=== PATIENT | female | born 1945 | race Caucasian/White ===

== ENCOUNTER 2022-11-29 13:14 | Inpatient (IN) | payer OTHER, MEDICARE ==
[2022-11-29 14:09] LABS: Absolute Lymphocytes (CBC) 2.4 K/uL (0.7-4.9); Hematocrit 42.1 % (36.0-45.0); Lymphocytes % 26.6 % (15.3-44.8); MCV 86.3 fL (80-100); MPV 8.6 fL (7.6-11.3); Platelets 179 thou/uL (152-406); RBC Red Blood Cell Count 4.88 M/uL (3.86-4.86)
[2022-11-29 14:37] LABS: Albumin 3.1 g/dL (3.4-5.0); Bilirubin Direct 0.2 mg/dL (0-0.2); Bilirubin Indirect, Calculated 0.4 mg/dL (0.2-0.8); Bilirubin Total 0.6 mg/dL (0.2-1.0); Potassium 4.3 mEq/L (3.5-5.1); Protein, Total 7.3 g/dL (6.4-8.2); Thyroid Stimulating Hormone 3.54 uIU/mL (0.358-3.740)
[2022-11-29 14:41] LABS: Troponin High Sensitivity 349.3 pg/mL (<58.9)
[2022-11-29] MEDS ORDERED: NA CHLORIDE 0.9% 1,000 ML ONE (15:14)
--- NOTE | 2022-11-29 16:19 | RAD REPORT ---
EXAM DESCRIPTION: CT - Chest For Pe Angio - 11/29/2022 3:54 pm CLINICAL HISTORY: sob COMPARISON: None. TECHNIQUE: Dynamically enhanced axial 3 mm thick images of the chest were obtained during administra tion of 100 mL Isovue 370 IV contrast. Coronal and oblique reconstruction images were generated and r eviewed. Exam utilizes a protocol for optimal evaluation of pulmonary arterial tree. Maximum intensity projections 3D imaging was utilized All CT scans are performed using dose optimization technique as appropriate and may include automated exposure control or mA/KV adjustment according to patient size. FINDINGS: Thrombus is present within distal aspect of left main pulmonary artery. Large amount of th rombus is present within left and right lower lobe pulmonary arteries. Thrombus is also present withi n proximal right and left upper lobe pulmonary arteries. Probable right heart strain No thrombus within the main pulmonary artery. A thoracic aortic aneurysm is not noted. A pleural effusion is not seen. A pericardial effusion is not seen. A lung consolidation is not present. IMPRESSION: Bilateral pulmonary emboli
--- NOTE | 2022-11-29 16:19 | RAD REPORT ---
EXAM DESCRIPTION: [place] Single View11/29/2022 2:05 pm CLINICAL HISTORY: sob COMPARISON: none FINDINGS: The lungs appear clear of acute infiltrate. The heart is mildly enlarged IMPRESSION: No acute abnormalities displayed
--- NOTE | 2022-11-29 16:34 | EDPHYS ---
Physician Documentation [facility] Name: Ceci Woodruff Age: 77 yrs Sex: Female : 1945 Arrival Date: 11/29/2022 Time: 13:14 Bed 19 Private MD: ED Physician Dominic Keith HPI: 11/29 16:39 This 77 yrs old Unknown Female presents to ER via Ambulatory with complaints of rt Shortness Of Breath - when walking. 16:39 Patient presents to the ED with shortness of breath, reported fast heart rate starting rt today but 11. Occurred acutely. Patient denies chest pain. Patient denies other acute complaints at this time. Symptoms are moderate severity, no other aggravating alleviating factors.. Historical: - Allergies: 13:30 PENICILLINS; mb9 - Home Meds: 13:30 atorvastatin 20 mg oral tablet once [Active]; losartan 100 mg oral tablet once mb9 [Active]; metoprolol tartrate 25 mg Oral tablet once [Active]; - PMHx: 13:30 Diabetes mellitus; Hypertensive disorder; Stage 4 kidney failure; mb9 - PSHx: 13:30 Total abdominal hysterectomy; Tonsillectomy; mb9 - Immunization history:: Adult Immunizations up to date. - Social history:: Smoking status: Patient denies any tobacco usage or history of. ROS: 16:39 Constitutional: Negative for fever, chills, and weight loss, Eyes: Negative for injury, rt pain, redness, and discharge, Abdomen/GI: Negative for abdominal pain, nausea, vomiting, diarrhea, and constipation, MS/Extremity: Negative for injury and deformity, Skin: Negative for injury, rash, and discoloration, Neuro: Negative for headache, weakness, numbness, tingling, and seizure, Psych: Negative for depression, anxiety, suicide ideation, homicidal ideation, and hallucinations. 16:39 Cardiovascular: Positive for palpitations, Negative for chest pain. 16:39 Respiratory: Positive for cough, shortness of breath. Exam: 16:39 Constitutional: This is a well developed, well nourished patient who is awake, alert, rt and in no acute distress. Head/Face: Normocephalic, atraumatic. Chest/axilla: Normal chest wall appearance and motion. Nontender with no deformity. No lesions are appreciated. Cardiovascular: Regular rate and rhythm with a normal S1 and S2. No gallops, murmurs, or rubs. Normal PMI, no JVD. No pulse deficits. Respiratory: Lungs have equal breath sounds bilaterally, clear to auscultation and percussion. No rales, rhonchi or wheezes noted. No increased work of breathing, no retractions or nasal flaring. Abdomen/GI: Soft, non-tender, with normal bowel sounds. No distension or tympany. No guarding or rebound. No evidence of tenderness throughout. Skin: Warm, dry with normal turgor. Normal color with no rashes, no lesions, and no evidence of cellulitis. MS/ Extremity: Pulses equal, no cyanosis. Neurovascular intact. Full, normal range of motion. Neuro: Awake and alert, GCS 15, oriented to person, place, time, and situation. Cranial nerves II-XII grossly intact. Motor strength 5/5 in all extremities. Sensory grossly intact. Cerebellar exam normal. Normal gait. Psych: Awake, alert, with orientation to person, place and time. Behavior, mood, and affect are within normal limits. 16:39 ECG was reviewed by the Attending Physician. Vital Signs: 13:28 BP 164 / 84; Pulse 133; Resp 22; Temp 97.4; Pulse Ox 93% on R/A; Weight 108.86 kg; eh3 Height 5 ft. 3 in. ; Pain 0/10; 14:00 BP 164 / 95; Pulse 124; Resp 18; Pulse Ox 95% on R/A; eh3 14:30 BP 166 / 89; Pulse 119; Resp 18; Pulse Ox 95% on R/A; eh3 15:00 BP 196 / 87; Pulse 119; Resp 20; Pulse Ox 98% on R/A; eh3 16:00 BP 140 / 86; Pulse 100; Resp 20; Pulse Ox 97% on R/A; eh3 16:30 BP 140 / 67; Pulse 100; Resp 20; Pulse Ox 98% on R/A; eh3 17:00 BP 131 / 76; Pulse 97; Resp 19; Pulse Ox 96% on R/A; eh3 18:00 BP 150 / 93; Pulse 97; Resp 20; Pulse Ox 97% on R/A; eh3 20:17 BP 159 / 71; Pulse 103; Resp 24; Temp 98.4; Pulse Ox 93% on R/A; eh3 13:28 Body Mass Index 42.51 (108.86 kg, 160.02 cm) eh3 13:28 Pain Scale: Adult eh3 MDM: 13:38 Patient medically screened. rt 16:39 Differential diagnosis: pneumonia, Pneumothorax pulmonary edema, Pulmonary Embolism rt reactive airway disease, Sepsis Unstable Angina. Data reviewed: vital signs, nurses notes, lab test result(s), EKG, radiologic studies. Consideration of Admission/Observation Patient was admitted/placed on observation. Management of patient was discussed with the following: Hospitalist: Agrees to admit. I considered the following discharge prescriptions or medication management in the emergency department Medications were administered in the Emergency Department. See MAR. Independent interpretation of the following test(s) in the Emergency Department CT Scan: My interpretation is Bilateral PEs seen on interpretation of the CT scan image. Care significantly affected by the following chronic conditions: Diabetes, Hypertension. Counseling: I had a detailed discussion with the patient and/or guardian regarding: the historical points, exam findings, and any diagnostic results supporting the discharge/admit diagnosis, the presence of at least one elevated blood pressure reading (>120/80) during this emergency department visit, lab results, radiology results, the need for further work-up and treatment in the hospital. 11/29 13:46 Order name: Basic Metabolic Panel; Complete Time: 14:44 rt 11/29 13:46 Order name: CBC with Diff; Complete Time: 14:32 rt 11/29 13:46 Order name: D-Dimer; Complete Time: 14:32 rt 11/29 13:46 Order name: LFT's; Complete Time: 14:44 rt 11/29 13:46 Order name: Magnesium; Complete Time: 14:44 rt 11/29 13:46 Order name: NT PRO-BNP; Complete Time: 14:44 rt 11/29 13:46 Order name: Troponin HS; Complete Time: 14:44 rt 11/29 13:46 Order name: TSH; Complete Time: 14:44 rt 11/29 17:21 Order name: CBC with Automated Diff EDMS 11/29 17:21 Order name: CBC with Automated Diff EDMS 11/29 17:21 Order name: Comprehensive Metabolic Panel EDMS 11/29 17:21 Order name: Comprehensive Metabolic Panel EDMS 11/29 13:46 Order name: XRAY Chest (1 view); Complete Time: 16:20 rt 11/29 14:36 Order name: CT Chest For PE Angio; Complete Time: 16:20 rt 11/29 17:25 Order name: Echo with Doppler EDMS 11/29 17:26 Order name: Extrem Venous W Compress La[place]; Complete Time: 20:15 EDMS 11/29 13:46 Order name: EKG; Complete Time: 13:46 rt 11/29 17:21 Order name: Regular EDMS 11/29 13:46 Order name: Cardiac monitoring; Complete Time: 14:01 rt 11/29 13:46 Order name: EKG - Nurse/Tech; Complete Time: 14:19 rt 11/29 13:46 Order name: IV Saline Lock; Complete Time: 14:01 rt 11/29 13:46 Order name: Labs collected and sent; Complete Time: 14:01 rt 11/29 13:46 Order name: O2 Per Protocol; Complete Time: 14:01 rt 11/29 13:46 Order name: O2 Sat Monitoring; Complete Time: 14:01 rt EC:39 Rate is 123 beats/min. Rhythm is regular, Sinus tachycardia with No ectopy. QRS [place] is rt Normal. [place] interval is normal. QRS interval is normal. QT interval is normal. No Q waves. T waves are Normal. No ST changes noted. Interpreted by me. Administered Medications: 15:00 Drug: NS 0.9% IV 1000 ml Route: IV; Rate: 1 bolus; Site: left antecubital; 3 18:00 Follow up: IV Status: Completed infusion; IV Intake: 1000ml 3 16:50 Drug: Enoxaparin Sub-Q 1 mg/kg Route: Sub-Q; Site: abdomen; eh3 17:55 Follow up: Response: No adverse reaction eh3 Disposition: 16:39 Critical Care:. rt Disposition Summary: 11/29/22 16:34 Hospitalization Ordered Hospitalization Status: Inpatient Admission rt Provider: Braxton Ramirez rt Condition: Fair rt Problem: new rt Symptoms: have improved rt Bed/Room Type: Standard rt Location: Intensive Care Unit(11/29/22 18:24) la1 Room Assignment: 3-(11/29/22 19:24) cg Diagnosis - Bilateral pulmonary embolism rt Forms: - Medication Reconciliation Form rt - SBAR form rt Critical care time excluding procedures: 16:39 Critical care time: Bedside Care: 30 minutes, Consultation: 10 minutes. Total time: 40 rt minutes Signatures: Dispatcher [employer] EDCash Greco, WRINGER MACHINE OPERATOR-C WRINGER MACHINE OPERATOR-Cla1 Marbella Aparicio, RN RN cg Hillary Strange RN RN 3 Tameka Null RN RN mb9 Dominci Keith MD MD rt Corrections: (The following items were deleted from the chart) 18:24 16:34 Telemetry/MedSurg (Inpatient) rt la1 18:24 16:34 rt la1 19:24 18:24 la1 cg
--- NOTE | 2022-11-29 16:34 | ER ---
Nurse's Notes [facility] Name: Ceci Woodruff Age: 77 yrs Sex: Female : 1945 Arrival Date: 11/29/2022 Time: 13:14 Bed 19 Private MD: Diagnosis: Bilateral pulmonary embolism Presentation: 11/29 13:28 Chief complaint: Patient states: "I'm getting SOB and can't catch my breath when I walk mb9 short distances. My pulse is really high as well and my SOB get worse when I move around at all". Coronavirus screen: Vaccine status: Patient reports receiving the 2nd dose of the covid vaccine. Ebola Screen: No symptoms or risks identified at this time. Initial Sepsis Screen: Does the patient meet any 2 criteria? No. Patient's initial sepsis screen is negative. Does the patient have a suspected source of infection? No. Patient's initial sepsis screen is negative. Risk Assessment: Do you want to hurt yourself or someone else? Patient reports no desire to harm self or others. Onset of symptoms was November 29, 2022. 13:28 Method Of Arrival: Ambulatory 9 13:28 Acuity: HEATHER 2 mb9 Triage Assessment: 13:32 General: Appears uncomfortable, Behavior is cooperative. Pain: Denies pain. mb9 Respiratory: Reports shortness of breath on exertion Airway is patent Respiratory effort is even, labored, Respiratory pattern is tachypnea Onset: The symptoms/episode began/occurred gradually, the patient has moderate shortness of breath. GI: Patient currently denies diarrhea, nausea. Derm: Skin is pink, warm \\T\\ dry. Musculoskeletal: Range of motion: intact in all extremities. Historical: - Allergies: 13:30 PENICILLINS; mb9 - Home Meds: 13:30 atorvastatin 20 mg oral tablet once [Active]; losartan 100 mg oral tablet once mb9 [Active]; metoprolol tartrate 25 mg Oral tablet once [Active]; - PMHx: 13:30 Diabetes mellitus; Hypertensive disorder; Stage 4 kidney failure; mb9 - PSHx: 13:30 Total abdominal hysterectomy; Tonsillectomy; mb9 - Immunization history:: Adult Immunizations up to date. - Social history:: Smoking status: Patient denies any tobacco usage or history of. Screenin:35 [facility] ED Fall Risk Assessment (Adult) Score/Fall Risk Level 0 - 2 = Low Risk. Abuse eh3 screen: Denies threats or abuse. Denies injuries from another. Nutritional screening: No deficits noted. Tuberculosis screening: No symptoms or risk factors identified. Assessment: 13:35 General: Appears in no apparent distress. uncomfortable, Behavior is cooperative, eh3 appropriate for age, anxious. Pain: Denies pain. Neuro: Level of Consciousness is awake, alert, obeys commands, Oriented to person, place, time, situation. Cardiovascular: Capillary refill < 3 seconds Patient's skin is warm and dry. Rhythm is sinus tachycardia. Respiratory: Airway is patent Respiratory effort is even, unlabored, Respiratory pattern is regular, symmetrical, Breath sounds are coarse bilaterally. GI: Abdomen is round non-distended. Derm: Skin is pink, warm \\T\\ dry. Musculoskeletal: Circulation, motion, and sensation intact. 14:00 Reassessment: Patient appears in no apparent distress at this time. Patient and/or eh3 family updated on plan of care and expected duration. Pain level reassessed. Patient is alert, oriented x 3, equal unlabored respirations, skin warm/dry/pink. 15:00 Reassessment: Patient appears in no apparent distress at this time. Patient and/or eh3 family updated on plan of care and expected duration. Pain level reassessed. Patient is alert, oriented x 3, equal unlabored respirations, skin warm/dry/pink. 16:00 Reassessment: Patient appears in no apparent distress at this time. Patient and/or eh3 family updated on plan of care and expected duration. Pain level reassessed. Patient is alert, oriented x 3, equal unlabored respirations, skin warm/dry/pink. 17:00 Reassessment: Patient appears in no apparent distress at this time. Patient and/or eh3 family updated on plan of care and expected duration. Pain level reassessed. Patient is alert, oriented x 3, equal unlabored respirations, skin warm/dry/pink. 18:00 Reassessment: Patient appears in no apparent distress at this time. Patient and/or eh3 family updated on plan of care and expected duration. Pain level reassessed. Patient is alert, oriented x 3, equal unlabored respirations, skin warm/dry/pink. 18:59 Reassessment: IV infiltrated. Discontinued IV, catheter intact, no redness swelling or eh3 drainage noted at site. Pressure dressing applied. 19:33 Reassessment: Nurse to nurse report received by Loraine in ICU. eh3 Vital Signs: 13:28 BP 164 / 84; Pulse 133; Resp 22; Temp 97.4; Pulse Ox 93% on R/A; Weight 108.86 kg; eh3 Height 5 ft. 3 in. ; Pain 0/10; 14:00 BP 164 / 95; Pulse 124; Resp 18; Pulse Ox 95% on R/A; eh3 14:30 BP 166 / 89; Pulse 119; Resp 18; Pulse Ox 95% on R/A; eh3 15:00 BP 196 / 87; Pulse 119; Resp 20; Pulse Ox 98% on R/A; eh3 16:00 BP 140 / 86; Pulse 100; Resp 20; Pulse Ox 97% on R/A; eh3 16:30 BP 140 / 67; Pulse 100; Resp 20; Pulse Ox 98% on R/A; eh3 17:00 BP 131 / 76; Pulse 97; Resp 19; Pulse Ox 96% on R/A; eh3 18:00 BP 150 / 93; Pulse 97; Resp 20; Pulse Ox 97% on R/A; eh3 20:17 BP 159 / 71; Pulse 103; Resp 24; Temp 98.4; Pulse Ox 93% on R/A; eh3 13:28 Body Mass Index 42.51 (108.86 kg, 160.02 cm) eh3 13:28 Pain Scale: Adult 3 ED Course: 13:19 Patient arrived in ED. im 13:21 Arm band placed on. mb9 13:30 Triage completed. mb9 13:35 Dominic Keith MD is Attending Physician. rt 13:35 Patient has correct armband on for positive identification. Placed in gown. Bed in low eh3 position. Call light in reach. Side rails up X2. Provided Education on: Use of call gillespie. Client placed on continuous cardiac and pulse oximetry monitoring. NIBP monitoring applied. Warm blanket given. 13:51 Hillary Strange, STAR is Primary Nurse. eh3 14:07 XRAY Chest (1 view) In Process Unspecified. EDMS 15:55 CT Chest For PE Angio In Process Unspecified. EDMS 16:34 Braxton Ramirez MD is Hospitalizing Provider. rt 19:39 No provider procedures requiring assistance completed. eh3 20:15 Inserted saline lock: 22 gauge in right antecubital area, using aseptic technique. eh3 20:25 Patient admitted, IV remains in place. 3 Administered Medications: 15:00 Drug: NS 0.9% IV 1000 ml Route: IV; Rate: 1 bolus; Site: left antecubital; eh3 18:00 Follow up: IV Status: Completed infusion; IV Intake: 1000ml 3 16:50 Drug: Enoxaparin Sub-Q 1 mg/kg Route: Sub-Q; Site: abdomen; 3 17:55 Follow up: Response: No adverse reaction eh3 Medication: 19:39 VIS not applicable for this client. 3 Intake: 18:00 IV: 1000ml; Total: 1000ml. 3 Outcome: 16:34 Decision to Hospitalize by Provider. rt 20:25 Admitted to ICU accompanied by nurse, family with patient, via stretcher, room 3, 3 Report called to [facility] 20:25 Condition: stable 20:25 Instructed on the need for admit. 20:26 Patient left the ED. 3 Signatures: Dispatcher [employer] EDHillary Abbott RN RN eh3 Tameka Null RN RN mb9 Dominic Keith MD MD rt Angelia Venegas Corrections: (The following items were deleted from the chart) 13:35 13:28 BP 164 / 84; Pulse 133bpm; Resp 22bpm; Pulse Ox 93% RA; 108.86 kg; Height 5 ft. 3 3 in.; BMI: 42.5; Pain 0/10, Adult; mb9
[2022-11-29] MEDS ORDERED: ENOXAPARIN 100 MG/ML SYR SQ ONE (16:55)
--- NOTE | 2022-11-29 17:23 | P.HP ---
Certification for Inpatient With expected LOS: >2 Midnights Practitioner: I am a practitioner with admitting privileges, knowledge of patient current condition, hospital course, and medical plan of care. Services: Services provided to patient in accordance with Admission requirements found in Title 42 Section 412.3 of the Code of Federal Regulations Patient History Date of Service: 12/01/22 Reason for admission: Pulmonary embolism History of Present Illness: Patient is 77 years of age admitted with acute worsening of her shortness of breath or shortness of breath started this Wednesday was diagnosed with pulmonary embolism patient has shortness of breath on mild exertion no prior history of thromboembolism no risk factors no recent surgeries Allergies Penicillins Allergy (Verified 11/29/22 17:43) Itching/Hives/Rash Home Medications: Atorvastatin Calcium [Lipitor] 20 mg PO BEDTIME 11/29/22 Dulaglutide [Trulicity] 1.5 mg SQ SEECOM 11/29/22 Insulin Degludec [Tresiba Flextouch U-100] 60 units SQ BEDTIME 11/29/22 Insulin Lispro [Humalog Kwikpen U-100] 13 units SQ ACHS 11/29/22 Losartan Potassium [Cozaar] 100 mg PO DAILY 11/29/22 Metoprolol Tartrate [Lopressor] 25 mg PO BID 11/29/22 - Past Medical/Surgical History -: Diabetes -: Hypertension Review of Systems 10-point ROS is otherwise unremarkable Respiratory: Shortness of Breath Physical Examination - Vital Signs Temperature: 97.4 F Blood Pressure: 163/84 Pulse: 133 Respirations: 22 Pulse Ox (%): 94 - Physical Exam General: Alert, In no apparent distress HEENT: Atraumatic Neck: Supple Respiratory: Clear to auscultation bilaterally, Diminished Cardiovascular: Normal S1 S2, Edema (Left leg is edematous that is chronic) Gastrointestinal: Normal bowel sounds, Soft and benign Musculoskeletal: No clubbing, No swelling - Studies Laboratory Data (last 24 hrs) 11/29/22 11/29/22 14:00 14:00 WBC 9.10 Hgb 13.6 Hct 42.1 Plt Count 179 Sodium 139 Potassium 4.3 BUN 16 Creatinine 1.38 H Glucose 153 H Magnesium 2.0 Total Bilirubin 0.6 AST 15 ALT 20 Alkaline Phosphatase 85 Assessment and Plan - Problems (Diagnosis) (1) Pulmonary embolism Status: Acute Plan: Patient is 77 years of age admitted with acute pulmonary embolism she is hemodynamically stable oxygenation vital signs are all stable right now we will plan to anticoagulate her with the Lovenox for now she is stable switch her over to Eliquis 10 mg twice a day for a week and then 5 mg twice a day she will need indefinite anticoagulation 2D echocardiogram ordered only has right ventricular strain elevated troponin patient has chronic renal insufficiency elevated troponins are from right heart strain/ May need thrombolytic [place] Qualifiers: Acute cor pulmonale presence: unspecified - Advance Directives Does patient have a Living Will: No Does patient have a Durable POA for Healthcare: No
--- NOTE | 2022-11-29 18:37 | RAD REPORT ---
EXAM DESCRIPTION: USExtrem Venous W Compress Bil11/29/2022 6:21 pm CLINICAL HISTORY: Leg pain COMPARISON: none FINDINGS: The common femoral, superficial femoral, greater saphenous, popliteal and posterior tibial veins bilaterally are compressible and demonstrate augmentation. Doppler demonstrates good flow. Grayscale, color and spectral analysis performed on all vessels IMPRESSION: No evidence of deep venous thrombosis involving either lower extremity.
[2022-11-29] MEDS ORDERED: MORPHINE 2 MG/ML SYR IV PRN (18:42)
[2022-11-29] MEDS ORDERED: D50W 25 GM/50 ML SYRINGE IV PRN (18:42)
[2022-11-29] MEDS ORDERED: GLUCAGON 1 MG/VIAL IM PRN (18:42)
[2022-11-29] MEDS ORDERED: D10W 125 ML IV PRN (19:10)
[2022-11-29] MEDS ORDERED: INSULIN -REGULAR HUMAN 50 UNIT/0.5 ML ML SQ SCH (21:00)
[2022-11-29] MEDS ORDERED: ATORVASTATIN 20 MG TAB PO SCH (21:00)
[2022-11-29] MEDS ORDERED: ATORVASTATIN 40 MG TAB PO SCH (21:00)
[2022-11-29 21:02] VITALS: O2SAT 93
--- NOTE | 2022-11-29 21:07 | P.DS ---
Admission Date: 11/29/22 Discharge Date: 11/29/22 Disposition: TRANSFER TO [facility] Reason for Admission: Pulmonary embolism Procedures: CT PE protocol 11/29/2022 FINDINGS: Thrombus is present within distal aspect of left main pulmonary artery. Large amount of thrombus is present within left and right lower lobe pulmonary arteries. Thrombus is also present within proximal right and left upper lobe pulmonary arteries. Probable right heart strain No thrombus within the main pulmonary artery. A thoracic aortic aneurysm is not noted. A pleural effusion is not seen. A pericardial effusion is not seen. A lung consolidation is not present. IMPRESSION: Bilateral pulmonary emboli Chest x-ray 11/29/2022 FINDINGS: The lungs appear clear of acute infiltrate. The heart is mildly enlarged IMPRESSION: No acute abnormalities displayed Bilateral lower extremity venous Dopplers 11/29/2022 FINDINGS: The common femoral, superficial femoral, greater saphenous, popliteal and posterior tibial veins bilaterally are compressible and demonstrate augmentation. Doppler demonstrates good flow. Grayscale, color and spectral analysis performed on all vessels IMPRESSION: No evidence of deep venous thrombosis involving either lower extremity Brief History of Present Illness: Patient was admitted for pulmonary embolism, given Lovenox, NS in ED. Hospital Course: Patient was admitted with diagnosis of bilateral pulmonary embolism, she was noted to have elevated troponin, right heart strain on CT along with large clot burden. Case was discussed with cardiology and hospitalist attending and recommendation was made for consultation with tertiary center for possible catheter directed therapy/EKOS/higher level of care. I discussed the case with cardiology Dr. Roach and MICU bus system operator Dr. Armstrong who graciously excepted the patient to their MICU for further evaluation/management. Vital Signs/Physical Exam: Temp Pulse Resp BP Pulse Ox 98.6 F 106 H 23 H 151/70 H 98 11/29/22 20:34 11/29/22 20:34 11/29/22 20:34 11/29/22 20:34 11/29/22 20:34 General: Alert, In no apparent distress, Oriented x3, Obese HEENT: Atraumatic, PERRLA, EOMI Neck: Supple, JVD not distended Respiratory: Clear to auscultation bilaterally, Normal air movement Cardiovascular: Regular rate/rhythm, Normal S1 S2 Capillary refill: <2 Seconds Gastrointestinal: Normal bowel sounds, No tenderness Musculoskeletal: No tenderness Integumentary: No rashes Neurological: Normal speech, Normal tone, Normal affect Laboratory Data at Discharge: WBC 9.10 thou/uL (4.3-10.9) 11/29/22 14:00 Hgb 13.6 g/dL (12.0-15.0) 11/29/22 14:00 Hct 42.1 % (36.0-45.0) 11/29/22 14:00 Plt Count 179 thou/uL (152-406) 11/29/22 14:00 Sodium 139 mEq/L (136-145) 11/29/22 14:00 Potassium 4.3 mEq/L (3.5-5.1) 11/29/22 14:00 BUN 16 mg/dL (7-18) 11/29/22 14:00 Creatinine 1.38 mg/dL (0.55-1.02) H 11/29/22 14:00 Glucose 153 mg/dL (74-106) H 11/29/22 14:00 Magnesium 2.0 mg/dL (1.6-2.4) 11/29/22 14:00 Total Bilirubin 0.6 mg/dL (0.2-1.0) 11/29/22 14:00 AST 15 U/L (15-37) 11/29/22 14:00 ALT 20 U/L (13-56) 11/29/22 14:00 Alkaline Phosphatase 85 U/L (45-117) 11/29/22 14:00 Physician Discharge Instructions: Continue with plan of care at [facility] Followup: NONE,NONE [Primary Care Provider] - Time spent managing pt's care (in minutes): 55
[2022-11-29 21:29] VITALS: BMI 40.6
[2022-11-30] MEDS ORDERED: ASPIRIN EC 81 MG TAB PO SCH ×2 (09:00)
[2022-11-30] MEDS ORDERED: ENOXAPARIN 100 MG/ML SYR SQ SCH (09:00)
[2022-11-30] MEDS ORDERED: LOSARTAN POTASSIUM 50 MG TABLET PO SCH ×2 (09:00)
--- NOTE | 2022-11-30 13:03 | EKG ---
Test Date: 2022-11-29 Test Time: 14:13:18 Director Corporate Sales: FRANK MEASUREMENT RESULTS: Intervals: Rate: 123 UT: 198 QRSD: 76 QT: 284 QTc: 406 [place]: P: 52 UT: 198 QRS: 66 T: 47 INTERPRETIVE STATEMENTS: Sinus tachycardia Low voltage QRS Borderline ECG No previous ECG available for comparison Electronically Signed On 11-30-22 13:00:28 CDT by Juan Luis Gaitan
[2022-12-01 15:59] VITALS: BP 163/84; TEMP 97.4
== END 2022-11-29 23:15 | disposition short-term general hospital (02) | DRG 176 ==
LOC: ER 13:14 → ERHOLD 17:18 → 3RD-ICU 19:36
PROVIDERS: ADMIT Internal Medicine Sleep Medicine; ATTEND Internal Medicine
DX: I26.99 Other pulmonary embolism without acute cor pulmonale (principal); N18.4 Chronic kidney disease, stage 4 (severe); Z68.41 Body mass index [BMI] 40.0-44.9, adult; E66.9 Obesity, unspecified; I12.9 Hypertensive chronic kidney disease with stage 1 through stage 4 chronic kidney disease, or unspecified chronic kidney disease; E11.22 Type 2 diabetes mellitus with diabetic chronic kidney disease; Z88.0 Allergy status to penicillin; Z79.4 Long term (current) use of insulin; Z90.710 Acquired absence of both cervix and uterus; Z79.899 Other long term (current) drug therapy
CPT/HCPCS: 36415; 71045; 71275; 80048; 80076; 82947; 83735; 83880; 84443; 84484; 85025; 85379; 93005; 93970; 96360; 96361; 96372; 99285; J1650; J7030; Q9967

== ENCOUNTER 2023-10-07 14:00 | Emergency (ER) | payer OTHER, MEDICARE ==
[2023-10-07] MEDS ORDERED: HYDROCODONE/APAP 5/325 MG TAB ONE (14:20)
--- NOTE | 2023-10-07 16:01 | ER ---
Nurse's Notes [facility] Name: Ceci Woodruff Age: 78 yrs Sex: Female : 1945 Arrival Date: 10/07/2023 Time: 14:00 Bed 5 Private MD: Diagnosis: Other sprain of right shoulder joint;Nondisplaced fracture of lateral malleolus of right fibula Presentation: 10/06 14:16 Chief complaint: Patient states: pt fell a week ago and is c/o right ankle pain. as6 Coronavirus screen: At this time, the client does not indicate any symptoms associated with coronavirus-19. Ebola Screen: No symptoms or risks identified at this time. Initial Sepsis Screen: Does the patient meet any 2 criteria? No. Patient's initial sepsis screen is negative. Does the patient have a suspected source of infection? No. Patient's initial sepsis screen is negative. Risk Assessment: Do you want to hurt yourself or someone else? Patient reports no desire to harm self or others. Onset of symptoms was September 30, 2023. 14:16 Method Of Arrival: Wheelchair as6 14:16 Acuity: HEATHER 4 as6 Historical: - Allergies: 14:19 PENICILLINS; as6 - PMHx: 14:19 diabetes mellitus; Hypertensive disorder; stage 4 kidney failure; as6 - PSHx: 14:19 Tonsillectomy; Total abdominal hysterectomy; as6 - Immunization history:: Adult Immunizations up to date. - Infectious Disease History:: Denies. - Social history:: Smoking status: Patient denies any tobacco usage or history of. Screenin:23 [facility] ED Fall Risk Assessment (Adult) History of falling in the last 3 months, mb9 including since admission Yes- single mechanical fall (1 pt) Confusion or Disorientation No (0 pts) Intoxicated or Sedated No (0 pts) Impaired Gait Yes (1 pt) Mobility Assist Device Used Yes (1 pt) Altered Elimination No (0 pt) Score/Fall Risk Level 3 or more points = High Risk Oriented to surroundings, Maintained a safe environment, Educated pt \T\ family on fall prevention, incl call for assistance when getting out of bed. Abuse screen: Denies threats or abuse. Nutritional screening: No deficits noted. Tuberculosis screening: No symptoms or risk factors identified. Assessment: 14:22 General: Appears in no apparent distress. Behavior is calm, cooperative. Pain: mb9 Complains of pain in right foot Pain does not radiate. Quality of pain is described as throbbing. Neuro: Truong Agitation-Sedation Scale (RASS): 0 - Alert and Calm Level of Consciousness is awake, alert, obeys commands, Oriented to person, place, time, situation, Appropriate for age. Cardiovascular: Patient's skin is warm and dry. Respiratory: Airway is patent Respiratory effort is even, unlabored, Respiratory pattern is regular, symmetrical. GI: No signs and/or symptoms were reported involving the gastrointestinal system. : No signs and/or symptoms were reported regarding the genitourinary system. EENT: No signs and/or symptoms were reported regarding the EENT system. Derm: Skin is pink, warm \T\ dry. Musculoskeletal: Capillary refill is brisk, in bilateral Range of motion: limited in right ankle. Vital Signs: 14:16 Pulse 89; Resp 16; Temp 98; Pulse Ox 98% ; Weight 108.86 kg; Height 5 ft. 2 in. ; Pain as6 9/10; 14:19 BP 157 / 79; as6 14:16 Body Mass Index 43.90 (108.86 kg, 157.48 cm) as6 14:16 Pain Scale: Adult as6 ED Course: 14:03 Patient arrived in ED. im 14:05 Ena Dennis FNP-C is PHCP. kb 14:05 Jorge Brower MD is Attending Physician. kb 14:18 Tameka Null, STAR is Primary Nurse. mb9 14:19 Triage completed. as6 14:19 Arm band placed on. as6 14:23 Bed in low position. Call light in reach. Side rails up X 1. Adult w/ patient. Provided mb9 Education on: press call light if needing anything. Client placed on continuous cardiac and pulse oximetry monitoring. NIBP monitoring applied. 14:24 No provider procedures requiring assistance completed. mb9 15:50 Ankle Right 3 View XRAY In Process Unspecified. EDMS 15:50 Shoulder Right (2 View) XRAY In Process Unspecified. EDMS 16:06 Patient did not have IV access during this emergency room visit. ld1 Administered Medications: 14:22 Drug: HYDROcodone-acetaminophen PO 5 mg-325 mg 1 tabs PO once Route: PO; mb9 15:09 Follow up: Response: No adverse reaction mb9 Medication: 14:24 VIS not applicable for this client. mb9 Outcome: 16:00 Discharge ordered by . lindsey 16:06 Discharged to home via wheelchair, with family, ld1 16:06 Condition: stable 16:06 Discharge instructions given to patient, family, Instructed on discharge instructions, follow up and referral plans. Demonstrated understanding of instructions, follow-up care, medications, Prescriptions given X 2, 16:07 Patient left the ED. ld1 Signatures: Dispatcher [employer] EDMS Ena Dennis, DIRECTOR OF PARTNER MARKETING-C DIRECTOR OF PARTNER MARKETING-Jessica Ricks RN RN ld1 Manuel Leone RN RN as6 Tameka Null RN RN mb9 Angelia Venegas
--- NOTE | 2023-10-07 16:02 | EDPHYS ---
Physician Documentation [facility] Name: Ceci Woodruff Age: 78 yrs Sex: Female : 1945 Arrival Date: 10/07/2023 Time: 14:00 Bed 5 Private MD: ED Physician Jorge Brower HPI: 10/06 14:12 This 78 yrs old Female presents to ER via Unassigned with complaints of Ankle Injury. kb 14:12 Pt is an 78 year old female who presents for right ankle and shoulder pain after kb twisting ankle and falling to right shoulder one week ago. Reports she is able to bear weight with walking boot, but otherwise is unable to walk. Reports pain to right shoulder that radiates across upper back/neck with raising arm up. . Historical: - Allergies: 14:19 PENICILLINS; as6 - PMHx: 14:19 diabetes mellitus; Hypertensive disorder; stage 4 kidney failure; as6 - PSHx: 14:19 Tonsillectomy; Total abdominal hysterectomy; as6 - Immunization history:: Adult Immunizations up to date. - Infectious Disease History:: Denies. - Social history:: Smoking status: Patient denies any tobacco usage or history of. ROS: 14:13 Constitutional: As per HPI kb Exam: 14:13 Constitutional: This is a well developed, well nourished patient who is awake, alert, kb and in no acute distress. Head/Face: Normocephalic, atraumatic. ENT: Moist Mucous membranes Cardiovascular: Regular rate Respiratory: Respirations even and unlabored. No increased work of breathing. Talking in full sentences Abdomen/GI: Soft, non-tender. No distention Skin: Warm, dry with normal turgor. Normal color. Neuro: Awake and alert, GCS 15, oriented to person, place, time, and situation. Moves all extremities. Normal gait. 14:13 Neck: External neck: tenderness, that is moderate, of the right trapezius and right posterior aspect of neck, 14:13 Musculoskeletal/extremity: Extremities: grossly normal except: noted in the right ankle: pain, swelling, tenderness, noted in the posterior aspect of right shoulder: pain, tenderness, ROM: limited active range of motion due to pain, Circulation is intact in all extremities. Sensation intact. Weight bearing: can bear weight with assistance only, Vital Signs: 14:16 Pulse 89; Resp 16; Temp 98; Pulse Ox 98% ; Weight 108.86 kg; Height 5 ft. 2 in. ; Pain as6 9/10; 14:19 BP 157 / 79; as6 14:16 Body Mass Index 43.90 (108.86 kg, 157.48 cm) as6 14:16 Pain Scale: Adult as6 MDM: 14:05 Patient medically screened. kb 14:15 Differential diagnosis: fracture, sprain. Data reviewed: vital signs, nurses notes. kb 16:03 Independent interpretation of the following test(s) in the Emergency Department X-Ray: kb My interpretation is shoulder x-ray- no fracture; ankle x-ray - nondisplaced fibula fracture. Historians other than the Patient: Spouse/Significant Other: . Counseling: I had a detailed discussion with the patient and/or guardian regarding the historical points, exam findings, and any diagnostic results supporting the discharge/admit diagnosis, radiology results, the need for outpatient follow up, a orthopedic surgeon, to return to the emergency department if symptoms worsen or persist or if there are any questions or concerns that arise at home. 10/06 14:12 Order name: Ankle Right 3 View XRAY 10/06 14:12 Order name: Shoulder Right (2 View) XRAY Administered Medications: 14:22 Drug: HYDROcodone-acetaminophen PO 5 mg-325 mg 1 tabs PO once Route: PO; mb9 15:09 Follow up: Response: No adverse reaction mb9 Disposition: 16:07 Co-signature as Attending Physician, Jorge Brower MD I reviewed the patient's care rn provided by the Advanced Practice Provider and agree with the diagnosis and treatment plan. Disposition Summary: 10/07/23 16:00 Discharge Ordered Notes: Location: Home kb Condition: Stable kb Diagnosis - Other sprain of right shoulder joint kb - Nondisplaced fracture of lateral malleolus of right fibula kb Followup: kb - With: Emergency Department - When: As needed - Reason: Worsening of condition Followup: kb - With: Private Physician - When: 2 - 3 days - Reason: Recheck today's complaints, Continuance of care, Re-evaluation by your physician Discharge Instructions: - Discharge Summary Sheet kb - Nondisplaced Fibular Ankle Fracture Treated With Immobilization kb - Shoulder Sprain kb Forms: - Medication Reconciliation Form kb - Antibiotic Education kb - Prescription Opioid Use kb - Patient Portal Instructions kb - Leadership Thank You Letter kb Prescriptions: - acetaminophen-codeine 300-15 mg Oral tablet - take 1 tablet ORAL route every 6 hours As needed; 12 tablet; Refills: 0, kb Product Selection Permitted - orphenadrine citrate 100 mg Oral Tablet Sustained Release - take 1 tablet ORAL route 2 times per day As needed; 20 tablet; Refills: 0, kb Product Selection Permitted Signatures: Dispatcher [employer] Ena Fernández, INTERNATIONAL ACCOUNT EXECUTIVE-C INTERNATIONAL ACCOUNT EXECUTIVE-Jorge Plasencia MD MD rn Slawson, Ashby, RN RN as6 Tameka Null RN RN mb9 Corrections: (The following items were deleted from the chart) 14:12 14:12 Ankle Right 3 View+[email or web address] ordered. BRITTMT GARRICK
[2023-10-07 16:25] VITALS: BP 157/79; TEMP 98; O2SAT 98
--- NOTE | 2023-10-07 17:34 | RAD REPORT ---
EXAM DESCRIPTION: Shoulder Right 2 View - 10/07/2023 3:49 pm CLINICAL HISTORY: PAIN COMPARISON: No comparisons TECHNIQUE: Internal and external rotation views of the right shoulder were obtained. FINDINGS: There is no fracture or dislocation. AC joint shows mild degenerative changes. Glenohumera l articulation appears well preserved. No acute or suspicious findings. IMPRESSION: No acute osseous abnormality. Mild AC joint degenerative changes.
--- NOTE | 2023-10-07 17:46 | RAD REPORT ---
EXAM DESCRIPTION: RAD - Ankle Right 3 View - 10/07/2023 3:49 pm CLINICAL HISTORY: PAIN COMPARISON: Ankle Right 3 View dated 05/05/2023 TECHNIQUE: Right ankle, 3 views. FINDINGS: Nondisplaced hairline fracture along the distal fibula. No dislocation or periosteal react ion. Mild joint effusion seen. No joint space narrowing. Pronounced soft tissue swelling about the an kle. Small calcaneal spur. IMPRESSION: Hairline fracture along the distal fibula.
== END 2023-10-07 16:07 | disposition home or self-care (01) ==
LOC: ER 14:00
DX: S43.491A Other sprain of right shoulder joint, initial encounter (principal); S82.64XA Nondisplaced fracture of lateral malleolus of right fibula, initial encounter for closed fracture
CPT/HCPCS: 99283